=== PATIENT | male | born 2000 | race African-American/Black ===

== ENCOUNTER 2022-01-21 08:59 | Emergency (ER) | payer SELFPAY ==
[2022-01-21] MEDS ORDERED: Dexamethasone 4 MG TAB ONE (11:27)
[2022-01-21] MEDS ORDERED: Mag-Al Plus 1200 MG/1200 MG/120 MG/30 ML UDCUP ONE (11:28)
[2022-01-21] MEDS ORDERED: Lidocaine Viscous Sol 2% 15 ml UD Cup ONE (11:28)
== END 2022-01-21 11:53 | disposition home or self-care (01) ==
LOC: CSHERS 08:59
DX: J02.0 Streptococcal pharyngitis (principal)
CPT/HCPCS: 87081; 87430; 99283; J8540